=== PATIENT | male | born 1955 ===

== ENCOUNTER 2023-07-11 09:57 | Inpatient (IN) | payer MEDICARE ==
[~2023-07-11] VITALS: Ht 167.6 cm; Wt 73.3 kg
[2023-07-11] MEDS ORDERED: Acetaminophen 325 MG TAB PO PRN ×2 (19:15→19:30)
[2023-07-11] MEDS ORDERED: Sennosides/Docusate 8.6-50 MG TAB PO PRN (19:30)
[2023-07-11] MEDS ORDERED: Naloxone 0.4 MG/ML VIAL IV PRN (19:30)
[2023-07-11] MEDS ORDERED: Docusate Sodium 100 MG CAP PO PRN (19:30)
[2023-07-11] MEDS ORDERED: Polyethylene Glycol 3350 17 GM PDS PO PRN (19:30)
[2023-07-11] MEDS ORDERED: levETIRAcetam 500 MG TAB PO SCH (21:00)
[2023-07-12 05:27] VITALS: BP 114/76; PULSE 73; TEMP 97.8
[2023-07-12 05:41] VITALS: BP 114/76; PULSE 73; TEMP 97.8
[2023-07-12] MEDS ORDERED: Clopidogrel 75 MG TAB PO SCH (09:00)
[2023-07-12] MEDS ORDERED: Atorvastatin 80 MG TAB PO SCH (09:00)
[2023-07-12] MEDS ORDERED: Lisinopril 5 MG TAB PO SCH (09:00)
[2023-07-12] MEDS ORDERED: PLAVIX 75MG TAB75 MG PO (14:02)
[2023-07-12] MEDS ORDERED: ASPIRIN 81M81 MG/TA2 PO (14:02)
[2023-07-12] MEDS ORDERED: ZESTRIL 5MG5 MG PO (14:03)
[2023-07-12] MEDS ORDERED: KEPPRA 500MG500 MG PO (14:03)
[2023-07-12] MEDS ORDERED: LIPITOR 80MG80 MG PO (14:04)
[2023-07-12] MEDS ORDERED: TOPROL XL 50MG50 MG PO (14:04)
[2023-07-12 17:17] VITALS: BP 121/82; PULSE 75; TEMP 98.1
[2023-07-13 05:55] VITALS: BP 124/73; PULSE 71; TEMP 98.3
[2023-07-13 06:00] VITALS: BP_SYST 124
[2023-07-13] MEDS ORDERED: Heparin 5,000 UNITS/ML 1 ML VIAL SQ SCH (08:54)
[2023-07-13 18:01] VITALS: BP_SYST 124
[2023-07-13 18:26] VITALS: BP 114/74; PULSE 60; TEMP 97.8
[2023-07-14 05:38] VITALS: BP 143/83; PULSE 73; TEMP 98.2
[2023-07-14 06:00] VITALS: BP_SYST 143
[2023-07-14 07:07] VITALS: BP_SYST 143
[2023-07-14 16:41] VITALS: BP 115/72; PULSE 78; TEMP 98.1
[2023-07-14 18:13] VITALS: BP_SYST 114
[2023-07-15 05:29] VITALS: BP 146/76; PULSE 72; TEMP 97.8
[2023-07-15 06:08] VITALS: BP_SYST 146
[2023-07-15 17:40] VITALS: BP 125/60; PULSE 73; TEMP 97.6
[2023-07-15 17:57] VITALS: BP_SYST 125
[2023-07-16 04:33] VITALS: BP 147/65; PULSE 70; TEMP 98.6
[2023-07-16 05:00] VITALS: BP_SYST 147
[2023-07-16 07:32] LABS: BASO # 0.1 K/mm3 (0.0-0.2); BASO % 0.7 % (0.0-2.0); EOS # 0.2 K/mm3 (0.0-0.7); EOS % 2.4 % (0.0-4.0); GRAN # 6.1 K/mm3 (1.4-6.5); GRAN % 61.5 % (42.2-75.2); HEMATOCRIT 38.8 % (42.0-52.0); HEMOGLOBIN 13.1 g/dl (13.5-18.0); LYMPH # 2.2 K/mm3 (1.2-3.4); LYMPH % 21.9 % (20.0-51.0); MEAN CELL VOLUME 98 fl (80.0-100.0); MEAN CORPUSCULAR HEMOGLOBIN 33 pg (27-31); MEAN CORPUSCULAR HGB CONC 34 g/dl (33.0-37.0); MEAN PLATELET VOLUME 9.4 fl (7.4-10.4); MONO # 1.3 K/mm3 (0.1-0.6); MONO % 13.2 % (1.7-9.3); PLATELET COUNT 359 K/mm3 (130-400); RED BLOOD COUNT 3.98 M/mm3 (4.20-5.60); REDCELL DISTRIBUTION WIDTH-CV 13.4 % (11.5-14.5)
[2023-07-16 07:51] LABS: CALCIUM 9.2 mg/dL (8.4-10.2); CREATININE, serum 0.87 mg/dL (0.72-1.25); POTASSIUM 4.3 mEq/L (3.5-4.5)
[2023-07-16 17:37] VITALS: BP 117/71; PULSE 80; TEMP 97.4
[2023-07-16 18:09] VITALS: BP_SYST 117
[2023-07-17 05:29] VITALS: BP 122/81; PULSE 70; TEMP 98.6
[2023-07-17 06:50] VITALS: BP_SYST 122
[2023-07-17 18:36] VITALS: BP 121/78; PULSE 84; TEMP 98
[2023-07-17 19:15] VITALS: BP_SYST 121
[2023-07-18 05:33] VITALS: BP 109/70; PULSE 73; TEMP 97.4
[2023-07-18 07:01] VITALS: BP_SYST 109
[2023-07-18] MEDS ORDERED: Citalopram 20 MG TAB PO SCH (11:15)
[2023-07-18 17:10] VITALS: BP 132/8; BP 132/80; PULSE 71; TEMP 97.3
[2023-07-18 19:13] VITALS: BP_SYST 132
[2023-07-19 06:00] VITALS: BP 140/73; PULSE 70; TEMP 98.3
[2023-07-19 07:14] VITALS: BP_SYST 140
[2023-07-19 17:22] VITALS: BP 139/70; PULSE 77; TEMP 97.8
[2023-07-19 19:00] VITALS: BP_SYST 139
[2023-07-20 05:31] VITALS: BP 112/75; PULSE 67; TEMP 97.8
[2023-07-20 06:43] VITALS: BP_SYST 112
[2023-07-20 16:12] VITALS: BP 116/72; PULSE 96; TEMP 98
[2023-07-20 19:00] VITALS: BP_SYST 116
[2023-07-21 06:03] VITALS: BP 120/74; PULSE 61; TEMP 97.6
[2023-07-21 07:00] VITALS: BP_SYST 120
[2023-07-21 17:28] VITALS: BP 117/74; PULSE 71; TEMP 98.1
[2023-07-21 19:30] VITALS: BP_SYST 117
[2023-07-22 05:43] VITALS: BP 126/74; PULSE 72; TEMP 98.1
[2023-07-22 07:00] VITALS: BP_SYST 126
[2023-07-22 11:46] VITALS: BP 97/64; PULSE 67; TEMP 98
[2023-07-22] MEDS ORDERED: ALPRAZolam 0.25 MG TAB PO ONE (15:30)
[2023-07-22 18:44] VITALS: BP 117/75; PULSE 67; TEMP 97.8
[2023-07-23 05:42] VITALS: BP 133/77; PULSE 66; TEMP 97.6
[2023-07-23 06:49] VITALS: BP_SYST 133
[2023-07-23 17:47] VITALS: BP 107/66; PULSE 68; TEMP 98.2
[2023-07-23 19:25] VITALS: BP_SYST 107
[2023-07-24 05:58] VITALS: BP 138/71; PULSE 63; TEMP 98.1
[2023-07-24 08:22] VITALS: BP_SYST 138
[2023-07-24 08:26] LABS: BASO # 0.1 K/mm3 (0.0-0.2); BASO % 0.9 % (0.0-2.0); EOS # 0.2 K/mm3 (0.0-0.7); EOS % 2.2 % (0.0-4.0); GRAN # 6.2 K/mm3 (1.4-6.5); GRAN % 64.5 % (42.2-75.2); LYMPH # 1.9 K/mm3 (1.2-3.4); LYMPH % 19.6 % (20.0-51.0); MEAN CELL VOLUME 97 fl (80.0-100.0); MEAN CORPUSCULAR HEMOGLOBIN 33 pg (27-31); MEAN CORPUSCULAR HGB CONC 34 g/dl (33.0-37.0); MEAN PLATELET VOLUME 9.2 fl (7.4-10.4); MONO # 1.1 K/mm3 (0.1-0.6); MONO % 11.7 % (1.7-9.3); PLATELET COUNT 371 K/mm3 (130-400); RED BLOOD COUNT 4.21 M/mm3 (4.20-5.60); REDCELL DISTRIBUTION WIDTH-CV 13.2 % (11.5-14.5)
[2023-07-24 08:45] LABS: CALCIUM 9.5 mg/dL (8.4-10.2); CREATININE, serum 0.91 mg/dL (0.72-1.25); POTASSIUM 4.4 mEq/L (3.5-4.5)
[2023-07-24 17:11] VITALS: BP 143/63; PULSE 73; TEMP 98.3
[2023-07-24 19:39] VITALS: BP_SYST 143
[2023-07-25 05:31] VITALS: BP 119/78; PULSE 68; TEMP 98.1
[2023-07-25 06:37] VITALS: BP_SYST 119
[2023-07-25 17:17] VITALS: BP 118/72; PULSE 72; TEMP 97.8
[2023-07-25 19:00] VITALS: BP_SYST 118
[2023-07-26 05:16] VITALS: BP 150/84; PULSE 68; TEMP 97.8
[2023-07-26 06:54] VITALS: BP_SYST 150
[2023-07-26 16:45] VITALS: BP 139/93; PULSE 71; TEMP 98.3
[2023-07-26 19:01] VITALS: BP_SYST 139
[2023-07-27 05:29] VITALS: BP 122/77; PULSE 68; TEMP 98.5
[2023-07-27 07:00] VITALS: BP_SYST 122
[2023-07-27 17:27] VITALS: BP 111/76; PULSE 69; TEMP 97.8
[2023-07-27 19:00] VITALS: BP_SYST 111
[2023-07-28 05:25] VITALS: BP 107/62; PULSE 63; TEMP 97.6
[2023-07-28 06:30] VITALS: BP_SYST 107
[2023-07-28 16:47] VITALS: BP 96/60; PULSE 66; TEMP 98.5
[2023-07-28 19:00] VITALS: BP_SYST 96
[2023-07-29 05:39] VITALS: BP 139/71; PULSE 63; TEMP 97.4
[2023-07-29 06:52] VITALS: BP_SYST 139
[2023-07-29 17:22] VITALS: BP 104/66; PULSE 62; TEMP 98.5
[2023-07-29 19:46] VITALS: BP_SYST 104
[2023-07-30 05:35] VITALS: BP 121/67; PULSE 60; TEMP 97.9
[2023-07-30 06:49] VITALS: BP_SYST 121
[2023-07-30 17:10] VITALS: BP 113/84; PULSE 74; TEMP 98.1
[2023-07-30 19:00] VITALS: BP_SYST 113
[2023-07-31 05:08] VITALS: BP 108/75; PULSE 76; TEMP 98.2
[2023-07-31 07:31] VITALS: BP_SYST 108
[2023-07-31 16:55] VITALS: BP 115/75; PULSE 65; TEMP 97.8
[2023-07-31 19:16] VITALS: BP_SYST 115
[2023-08-01 05:33] VITALS: BP 123/76; BP 133/80; PULSE 66; PULSE 80; TEMP 98.1
[2023-08-01 17:00] VITALS: BP 97/60; PULSE 70; TEMP 98.3
[2023-08-02 05:41] VITALS: BP 103/71; PULSE 61; TEMP 97.9
== END 2023-08-02 13:30 | DRG 57 ==
PROVIDERS: ADMIT Physical Medicine & Rehabilitation Sports Medicine
DX: I69.351 Hemiplegia and hemiparesis following cerebral infarction affecting right dominant side (principal); I69.320 Aphasia following cerebral infarction; I69.322 Dysarthria following cerebral infarction; I69.391 Dysphagia following cerebral infarction; R13.11 Dysphagia, oral phase; I65.23 Occlusion and stenosis of bilateral carotid arteries; I69.318 Other symptoms and signs involving cognitive functions following cerebral infarction; Z66 Do not resuscitate; G40.909 Epilepsy, unspecified, not intractable, without status epilepticus; I10 Essential (primary) hypertension; I25.10 Atherosclerotic heart disease of native coronary artery without angina pectoris; Z95.5 Presence of coronary angioplasty implant and graft; Z91.148 Patient's other noncompliance with medication regimen for other reason
CPT/HCPCS: J1644